=== PATIENT | female | born 1945 | race Caucasian/White ===

== ENCOUNTER → 2018-06-11 08:01 | Outpatient (CLI) | payer BC, MEDICARE, SELFPAY ==
--- NOTE | 2018-06-11 08:30 | MM_ITS ---
MM Dig screening mamm BI w/CAD CAD Screening COMPARISON: Digital mammograms with CAD 01/05/2017 and 08/31/2015 INDICATION: There is a history of breast cancer in the patient maternal grandmother. TECHNIQUE: Standard CC and MLO images were obtained. R2 CAD reviewed. FINDINGS: There is a markedly dense and heterogenic parenchymal pattern definitely lessening the sensitivity of mammography. There are benign-appearing calcination is in each breast and there is arterial calcification noted bilaterally. There is a biopsy clip left breast. There is no suspicious lesion and no suspicious microcalcifications. IMPRESSION: Dense parenchymal pattern with no suspicious lesion seen. BI-RADS Category: 2 Benign Finding(s) RECOMMENDED FOLLOW-UP: 1YR - 1 YEAR FOLLOW-UP (A letter has been sent to the patient regarding results of the study.)
== END ==
PROVIDERS: PCP Family Medicine; Visit Provider Family Medicine
DX: Z12.31 Encounter for screening mammogram for malignant neoplasm of breast (principal)
CPT/HCPCS: 77067

== ENCOUNTER → 2019-06-13 08:40 | Outpatient (CLI) | payer MEDICARE, SELFPAY ==
--- NOTE | 2019-06-13 08:55 | XR_ITS ---
PROCEDURE: XR DEXA AXIAL SKELETON CLINICAL HISTORY: OSTEOPOROSIS COMPARISON: ABDPELW/O CT ABD PELVIS W/O CONTRAST from 10/16/2015 FINDINGS: L1-L4 density is 1.348 grams/centimeters sq with a T-score of 1.4. Left femoral neck density is 0.595 grams/centimeters sq with a T-score of -3.2 Scanogram images show lumbar scoliosis convex left IMPRESSION: Osteoporosis with high fracture risk. Treatment advised. Suggest follow-up exam May 2020 Dictated by: Rachid Madera MD 06/13/2019 10:03 Electronically signed by Rachid Madera MD in [place] 06/13/2019 10:03
--- NOTE | 2019-06-13 08:55 | MM_ITS ---
PROCEDURE: MM DIG SCREENING MAMM BI W/CAD Patient Age:73Y CLINICAL INDICATION: SCREENING 73-year-old. No hormones but no new complaints. Previous cyst aspirations bilaterally. Family history. Maternal grandmother with breast cancer COMPARISON: DIGMAMMS MAMMOGRAM SCREEN-MEAT SPECIALIST N/C from 07/15/2009 [facility] DIGITAL MAMM-SCREEN BILATERAL from 10/04/2010 [facility] DIG MAMM-SCREEN ALAINA from 08/31/2015 [facility] DIG MAMM-SCREEN ALAINA W/CAD from 01/05/2017 BL US BREAST-LT COMPLETE W/AXILLA from 01/25/2017 BR US BREAST-RT COMPLETE W/AXILLA from 01/25/2017 DMDXUAVR DIG MAMM-DX UNI A/VW-RT W/CAD from 01/25/2017 DMDXUL DIG MAMM-DX UNI-LT W/CAD from 02/15/2017 MAMTL US MAMMOTOME-LT from 02/15/2017 [facility] MM Dig screening mamm BI w/CAD from 06/11/2018 TECHNIQUE: Standard CC and MLO images were obtained. R2 CAD reviewed. Axillary CC view bilaterally as were included FINDINGS: dense heterogeneous breast tissue bilaterally, with fibroglandular elements most evident at the upper outer quadrant bilaterally-and extending to the central breast/retroareolar region bilateral. Mammography is decreased sensitivity in these regions of denser heterogeneous tissue. However we see no unique nor definitive dominant mass of. A density areas on one view dissipate on another favoring fibroglandular elements suspicious calcifications. Right breast with right CC views appear unchanged no new findings except for the slight progressive calcification benign-appearing at a area at 6 o'clock position Left breast. Metallic clip from previous biopsy upper outer quadrant again noted. Areas of density on the MLO view seen today appear stable since 2016 and 2010. No significant new areas of concern . IMPRESSION: No significant change. Overall stable mammogram. No new unique or persistent definitive new areas of significant concern However Mammography of decreased sensitivity within areas of dense heterogeneous breast, as seen bilaterally. if any palpable areas present or developed ultrasound would be useful complement augment to mammography particularly in breast of this heterogeneous dense character. Bilateral follow-up mammogram 1 year recommended, should be emphasized and encouraged BI-RAD Category: 2 Benign Finding(s) FOLLOW-UP: 1YR 1 Year Follow-up (A letter has been sent to the patient regarding results of the study.) Dictated by: Josef Houser MD 06/15/2019 11:50 Electronically signed by Josef Houser MD in [place] 06/19/2019 09:52
== END ==
PROVIDERS: PCP Family Medicine; Visit Provider Family Medicine
DX: Z12.31 Encounter for screening mammogram for malignant neoplasm of breast (principal); M81.0 Age-related osteoporosis without current pathological fracture
CPT/HCPCS: 77067; 77080

== ENCOUNTER → 2020-06-15 10:07 | Outpatient (CLI) | payer MEDICARE, SELFPAY ==
--- NOTE | 2020-06-15 10:09 | MM_ITS ---
PROCEDURE: MM DIG SCREENING MAMM BI W/CAD Digital Breast Tomosynthesis Included CLINICAL INDICATION: SCREENING Breast cancer in the patient's maternal grandmother and the patient's daughter and niece both diagnosed before menopause. There has been a previous biopsy left breast and a previous cyst aspiration right breast. COMPARISON: MG DMDXUL DIG MAMM-DX UNI-LT W/CAD from 02/15/2017 MG [facility] MM Dig screening mamm BI w/CAD from 06/11/2018 MG MM DIG SCREENING MAMM BI W/CAD from 06/13/2019 TECHNIQUE: Standard CC and MLO images and 3D Tomosynthesis was obtained. R2 CAD reviewed. FINDINGS: Prominent and heterogenic fibroglandular densities are seen throughout both breasts. Christo images are most helpful in this type of dense breast parenchyma. Findings are bilateral and symmetrical. There is faint arterial calcification bilaterally. There is a biopsy clip upper outer quadrant left breast. There are benign-appearing calcifications in each breast. There is no suspicious lesion in either breast and no suspicious microcalcifications. IMPRESSION: Stable dense and heterogenic parenchymal pattern with no suspicious lesions seen BI-RAD Category: 2 Benign Finding(s) FOLLOW-UP: 1YR 1 Year Follow-up (A letter has been sent to the patient regarding results of the study.) Dictated by: Dr. Tee Hernandes MD 06/16/2020 09:37 Dr. Tee Hernandes MD in [place] 06/16/2020 09:37
== END ==
PROVIDERS: PCP Family Medicine; Visit Provider Family Medicine
DX: Z12.31 Encounter for screening mammogram for malignant neoplasm of breast (principal)
CPT/HCPCS: 77063; 77067

== ENCOUNTER → 2021-08-09 08:12 | Outpatient (CLI) | payer MEDICARE, SELFPAY ==
--- NOTE | 2021-08-09 08:18 | MM_ITS ---
PROCEDURE INFORMATION: Exam: MG Bilateral Screening 3D Mammography Exam date and time: 08/09/2021 8:18 AM Age: 75 years old Clinical indication: screening mammogram TECHNIQUE: Imaging protocol: Bilateral screening tomosynthesis and 2D mammography including computer-aided detection (CAD) when performed. COMPARISON: 1. MG MM DIG SCREENING MAMM BI W/CAD 06/15/2020 10:38 AM 2. MG MM DIG SCREENING MAMM BI W/CAD 06/13/2019 9:21 AM 3. MG [facility] MM Dig screening mamm BI w/CAD 06/11/2018 8:19 AM 4. MG DMDXUL DIG MAMM-DX UNI-LT W/CAD 02/15/2017 11:23 AM FINDINGS: MAMMOGRAPHY: Breast composition: The breast tissue is heterogeneously dense, which may obscure small masses. Mass: Stable benign-appearing subcentimeter nodules are present in the bilateral breasts. No new or morphologically suspicious nodule has developed to suggest malignancy. Architectural distortion: No new or suspicious architectural distortion. Calcifications: Stable benign-appearing calcifications are present. No new or suspicious cluster of microcalcifications have developed. Asymmetric density: No new or suspicious asymmetric density is present Skin thickening: None. Axillary adenopathy: None. IMPRESSION: No mammographic evidence of malignancy. Recommend annual screening mammography unless otherwise clinically indicated. ASSESSMENT: BI-RADS category 2: Benign
--- NOTE | 2021-08-09 08:19 | XR_ITS ---
PROCEDURE: XR DEXA AXIAL SKELETON CLINICAL HISTORY: OSTEOPOROSIS COMPARISON: CR BONE3 BONE DENSITOMETRY(HIP:LT SPINE from 01/05/2017 FINDINGS: The right hip BMD is 0.523 with a T-score of -2.9. The left hip BMD is 0.513 with a T-score of -3.0. The lumbar spine BMD is 1.138 with a T-score of 0.8. Previous the lowest density was in the right femoral neck with a T-score of -3.3 IMPRESSION: This patient is considered osteoporotic according to the World Health Organization criteria. Fracture risk is high. Treatment is advised. Based on these results a follow-up exam is recommended in 1 year. Dictated by: Rachid Madera MD 08/09/2021 14:06 Rachid Madera MD in [place] 08/09/2021 14:06
== END ==
PROVIDERS: PCP Family Medicine; Visit Provider Family Medicine
DX: Z12.31 Encounter for screening mammogram for malignant neoplasm of breast (principal); M81.0 Age-related osteoporosis without current pathological fracture
CPT/HCPCS: 77063; 77067; 77080

== ENCOUNTER → 2022-09-19 11:17 | Outpatient (CLI) | payer MEDICARE, SELFPAY ==
--- NOTE | 2022-09-19 11:21 | MM_ITS ---
PROCEDURE INFORMATION: Exam: MG Bilateral Screening 3D Mammography Exam date and time: 09/19/2022 11:17 AM Age: 76 years old Clinical indication: Screening examination TECHNIQUE: Imaging protocol: Bilateral Screening tomosynthesis and 2D mammography including computer-aided detection (CAD) when performed. COMPARISON: 1. MG MM DIG SCREENING MAMM BI W/CAD 08/09/2021 8:29 AM 2. MG MM DIG SCREENING MAMM BI W/CAD 06/15/2020 10:38 AM FINDINGS: MAMMOGRAPHY: Breast composition: Hetero Breast composition: The breasts are heterogeneously dense, which may obscure small masses. Mass: None. Architectural distortion: None. Calcifications: No suspicious calcifications. Asymmetric density: None. Skin thickening: None. Axillary adenopathy: None. IMPRESSION: No mammographic evidence of malignancy. Annual screening is recommended unless otherwise clinically indicated. ASSESSMENT: BI-RADS Category 1: Negative
== END ==
PROVIDERS: PCP Family Medicine; Visit Provider Family Medicine
DX: Z12.31 Encounter for screening mammogram for malignant neoplasm of breast (principal)
CPT/HCPCS: 77063; 77067

== ENCOUNTER 2023-04-13 08:00 | Outpatient (RCR) | payer MEDICARE, SELFPAY | END 2023-04-13 08:05 | disposition home or self-care (01) | LOC: OT 08:00 | PROVIDERS: PCP Family Medicine; Visit Provider Physician Assistant | DX: M25.512 Pain in left shoulder (principal); Z96.612 Presence of left artificial shoulder joint | CPT/HCPCS: 97010; 97014; 97016; 97110; 97140; 97164; 97165; 97530; G0283 ==

== ENCOUNTER 2023-12-01 08:11 | Outpatient (CLI) | payer MEDICARE, SELFPAY ==
--- NOTE | 2023-12-01 08:14 | MM_ITS ---
PROCEDURE INFORMATION: Exam: MG Bilateral Screening 3D Mammography Exam date and time: 12/01/2023 8:07 AM Age: 78 years old Clinical indication: Screening examination TECHNIQUE: Imaging protocol: Bilateral Screening tomosynthesis and 2D mammography including computer-aided detection (CAD) when performed. COMPARISON: 1. MG MM DIG SCREENING MAMM BI W/CAD 09/19/2022 11:17 AM 2. MG MM DIG SCREENING MAMM BI W/CAD 08/09/2021 8:29 AM FINDINGS: MAMMOGRAPHY: Breast composition: The breasts are heterogeneously dense, which may obscure small masses. Mass: None. Architectural distortion: None. Calcifications: No suspicious calcifications. Asymmetric density: None. Skin thickening: None. Axillary adenopathy: None. IMPRESSION: No mammographic evidence of malignancy. Annual screening is recommended unless otherwise clinically indicated. ASSESSMENT: BI-RADS Category 1: Negative
== END 2023-12-01 23:59 ==
LOC: RAD 08:12
PROVIDERS: PCP Family Medicine; Visit Provider Family Medicine
DX: Z12.31 Encounter for screening mammogram for malignant neoplasm of breast (principal)
CPT/HCPCS: 77063; 77067

== ENCOUNTER 2024-06-10 09:10 | Outpatient (CLI) | payer MEDICARE, SELFPAY ==
--- NOTE | 2024-06-10 09:14 | XR_ITS ---
FINAL REPORT CLINICAL HISTORY: SCREENING. COMPARISON: None FINDINGS: Using L1-4, the bone mineral density of the spine is 1.239 g/cm2, corresponding to T-score of 1.7 which is within normal limits but likely falsely elevated secondary to hypertrophic changes. Using the left hip, the bone mineral density of the femoral neck is 0.522 g/cm2, corresponding to a T-score of -2.9 which is consistent with osteoporosis. Using the right hip, the bone mineral density of the femoral neck is 0.580 g/cm2, corresponding to a T-score of -2.4 which is consistent with low bone density. FRAX not reported because some T-score at or below -2.5 and the patient is being treated for osteoporosis. NOTE: T-score: Standard deviation compared with peak bone mass of young adult mean. *Following the recommendations of the International Society of Bone densitometry, classification of hip BMD is based on the lower of two T-scores; total hip or femoral neck. IMPRESSION: Diminished bone mineral density consistent with osteoporosis. Reviewed, Interpreted and Dictated by Christopher Garrett III, MD Transcribed by Nisha Chery Authenticated and [facility]
== END 2024-06-10 23:59 | disposition home or self-care (01) ==
LOC: RAD 09:10
PROVIDERS: PCP Family Medicine; Visit Provider Family Medicine
DX: M81.0 Age-related osteoporosis without current pathological fracture (principal)
CPT/HCPCS: 77080

== ENCOUNTER 2025-03-03 16:06 | Outpatient (CLI) | payer MEDICARE, SELFPAY ==
--- OUTSIDE RECORDS SUMMARY | 2021-07-01 10:32 | XMS_ITS | Continuity of Care Document ---
Author Name [facility] Organization [facility] Care Team Providers Care Ug Designer Name Role Phone [facility] Unavailable Unavailable Immunizations Combined list of available immunizations from the Department of Defense and Veterans Affairs facilities. Immunization Series Date Given Administered By Site Reaction Lot Number CVX Code Drug Drapery Head Former Status Comments Source COVID-19 ([employer]), MRNA, LNP-S, PF, 30 MCG/0.3 ML DOSE 3 2020 208 complet ed PFR; [id number]; 2 [place] [facility]
--- OUTSIDE RECORDS SUMMARY | 2024-12-02 05:00 | XMS_ITS ---
Author Organization [facility] Address [address] [place] [address] [address] [facility] [address] [place] [id number] Care Team Providers Care Archeologist Classical Name Role Phone Marvin Basurto Primary Care Provider [phone] REASON FOR VISIT 6 Month Check Up Encounters Encounter Location Date Provider Diagnosis [facility] [address] [facility] [address] [facility] [address] [place] [phone] 12/02/2024 Marvin Basurto Plan Of Treatment Next Appt Details Provider Name:Marvin Rosario ry, 08/29/2025 09:30:00 AM, [address] [facility] [address] [facility], [address], [place], [id number], Progress Notes * JG BENDERLVB:1945 ([age] yo F)Acc No.[id number]:12/02/2024 Progress Notes Patient: KASEY MCCARTHY Provider: Cesar Basurto M.D. :1945 A ge:79 Y S ex:Female Date:12/02/2024 Address:[address] [place] [address] [id number] Subjective: * Chief Complaints: * 1 . 6 Month Check Up. * Medical History: Objective: * Vitals: Assessment: Plan: * Treatment: * Images: Billing Information: * Visit Code: * Procedure Codes: * Electronic signature of April Basurto MD on 03/03/2025 at 04:11 PM EDT Sign off status: Pending * Provider: Cesar Basurto M.D. Date: 0 12/02/2024 Generated for Jaye darling/Rashard/Flory on: 0 03/03/2025 04:11 PM EDT
--- OUTSIDE RECORDS SUMMARY | 2024-12-11 11:45 | XMS_ITS ---
[facility] Address [address] [place] [id number] Care Team Providers Care Splicing Technician Name Role Phone Marvin Basurto Primary Care Provider Allergies Allergen (clinical drug ingredient) Drug/Non Drug Allergy documented on EMR Reaction Allergy Type Onset Date Status sulindac Sulindac rash Drug Allergy Active Results Component Value Reference Range Notes CBC Fingerstick (in house) Reviewed date:12/11/2024 03:57:41 PM Interpretation: Performing Lab: Notes/Report: wbc 12.7 3.5 - 10 lym 12.6% 15 - 50 mid 4.0% 2 - 15 gran 83.4% 35 - 80 rbc 4.50 3.5 - 5.5 hgb 12.7 11.5 - 16.5 hct 38.2 35 - 55 mcv 84.9 75 - 100 mch 28.2 25 - 35 mchc 33.2 31 - 38 plat 316 100 - 400 REASON FOR VISIT congestion, cold Medications Medication SIG (Take, Route, Frequency, Duration) Notes Start Date End Date Status Calcium-Vitamin D-Minerals 600-800 MG-UNIT 1 tab(s) orally 2 times a day; Duration: 30 day(s) Active Vitamin D 50 MCG (1999) 1 tablet Oral ly Once a day Active Alendronate Sodium 70 MG TAKE 1 TABLET B Y MOUTH ONCE A WEEK, DIRECTED Active Irbesartan 300 MG TAKE 1 TABLET BY DAILY; Duration: 90 days Active Atorvastatin Calcium 40 MG 1 tab(s) oral ly once a day; Duration: 90 days Active Zithromax Z-Wilian 250 MG as directed Orall y once daily; Duration: 5 days 12/11/2024 Active Benzonatate 200 MG 1 capsule as needed Orally Three times a day 12/11/2024 Active Meclizine HCl 25 MG 1 tab(s) orally 3 ti mes a day prn 08/13/2013 Active Metamucil Smooth Texture 58.6 % as directed orally once a day; Duration: 7 day(s) Active Multiple Vitamin - 1 cap(s) orally once a day; Duration: 30 day(s) Active Tylenol Extra Strength 500 MG 1 tablet as needed Orally every 6 hrs Active ZyrTEC Allergy 10 MG 1 tab(s) orally onc e a day Active Vital Signs Weight 126 lbs 12/11/2024 Blood pressure systolic 130 mm Hg 12/12/19 25 Blood pressure diastolic 80 mm Hg 025 Heart Rate 92 /min 12/11/2024 Height 62 in 12/11/2024 BMI 23.04 kg/m2 12/11/2024 Encounters Encounter Location Date Provider Diagnosis [facility] [address] [facility] [address] [facility] [address] [place] [phone] 12/11/2024 Marvin Basurto Acute URI J06.9 Assessments Encounter Date Diagnosis (ICD Code) Assessment Notes Treatment Notes Treatment Clinical Notes Section Notes 12/11/2024 Acute URI (ICD-10 - J06.9) Plan Of Treatment Medication Medication Name Sig Start Date Stop Date Notes Zithromax Z-Wilian 250 MG as directed Orall y once daily; Duration: 5 days 12/11/2024 Benzonatate 200 MG 1 capsule as needed Orally Three times a day 12/11/2024 Next Appt Details Follow Up: prn, Reason: Provider Name:Marvin Rosario ry, 08/29/2025 09:30:00 AM, [address] [facility], [address], [place], [phone], Progress Notes * ART RUIZ:1945 ([age] yo F)Acc No.[id number]:12/11/2024 Progress Notes Patient: KASEY MCCARTHY Provider: Cesar Basurto M.D. :1945 A ge:79 Y S ex:Female Date:12/11/2024 Address:[address] [place], [place] [address] [address] [phone] Subjective: * Chief Complaints: * 1 . Congestion, cold. * HPI: E NT/respiratory: 79 year old female presents with c/o cough P t complains of greenish yellow sputum production cough for about a week. Associated with nasal congestion. * ROS: D ERMATOLOGY: no R arjun. n o H luis armando. G ASTROENTEROLOGY: no N ausea. n o V omiting. U ROLOGY: no D ifficulty urinating. n o B lood in urine. * Medical History: D exa with Hip Osteoporosis, 07/2009, LT Shoulder Arthritis, Hyperlipidemia, Colon Polyps, 2017. * Surgical History: P artial Hyst 1980, Bilateral Cataract Removal 2014, Colonoscopy 2006, 2017, Mole Removal - Begnin 03/2019. * Hospitalization/Major Diagno stic Procedure: K [facility]ley [facility] 10/2015, ER [facility] [place], [place] 09/17/2018. * Family History: F ather: alive. M other: alive. 1 son(s) , 1 daughter(s) . . * Social History: C URRENT TOBACCO USE S moking Status: Patient does NOT smoke. C affeine: yes, frequency:daily. Past smoking status: no, Smoking status: Does not smoke. * Medications: T aking Tylenol Extra Strength 500 MG Tablet 1 tablet as needed Orally every 6 hrs , Taking ZyrTEC Allergy 10 MG Tablet 1 tab(s) orally once a day , Taking Multiple Vitamin - Capsule 1 cap(s) orally once a day , Taking Meclizine HCl 25 MG Tablet 1 tab(s) orally 3 times a day , Notes to Pharmacist: prn, Taking Metamucil Smooth Texture 58.6 % Powder as directed orally once a day , Taking Calcium-Vitamin D-Minerals 600-800 MG-UNIT Tablet Chewable 1 tab(s) orally 2 times a day , Taking Vitamin D 50 MCG (2000 UT) Tablet 1 tablet Orally Once a day , Taking Alendronate Sodium 70 MG Tablet TAKE 1 TABLET BY MOUTH ONCE A WEEK, DIRECTED , Taking Irbesartan 300 MG Tablet TAKE 1 TABLET BY MOUTH DAILY , Taking Atorvastatin Calcium 40 MG Tablet 1 tab(s) orally once a day , Medication List reviewed and reconciled with the patient * Allergies: S ulindac: rash. Objective: * Vitals: W t: 126, Temp: 98.2, BP: 130/80, HR: 92, O2 Sat: 97% on RA, Nurse: raghu, Ht: 62, BMI:23.04. * Examination: E NT/Respiratory: General Appearance: N AD. O ral cavity : m inimal erythema without exudate on pharynx. H eart : R RR, normal S1 S2. L ungs: c lear to auscultation bilaterally. Assessment: * Assessment: 1. Cheo maldonado URI - J06.9 (Primary) Plan: * Treatment: Value Reference Range w bc 12.7 3.5 - 10 * l ym 12.6% 15 - 50 * m id 4.0% 2 - 15 * g ran 83.4% 35 - 80 * r bc 4.50 3.5 - 5.5 * h gb 12.7 11.5 - 16.5 * h ct 38.2 35 - 55 * m cv 84.9 75 - 100 * m ch 28.2 25 - 35 * m chc 33.2 31 - 38 * p lat 316 100 - 400 * Nikole Farrell 12/11/2024 03:57: 20 PM > Provider reviewed results while patient in office. * Procedure Codes: G 2211 Complex e/[place], [address] CAPILLARY BLOOD DRAW, 17269 CBC WITH AUTO DIFF * Follow Up: p rn * Images: Billing Information: * Visit Code: 56010 Office Visit, Est Pt., Level 3. * Procedure Codes: G2211 Complex e/[place]. [address] CAPILLARY BLOOD DRAW. 23580 CBC WITH AUTO DIFF. * Electronic signature of April Basurto MD on 03/03/2025 at 04:11 PM EDT Sign off status: Pending * Provider: Cesar Basurto M.D. Date: 12/11/2024 Generated for Jaye darling/Rashard/Zeniaitting on: 0 03/03/2025 04:11 PM EDT History and Physical Notes * HPI (History of Present Illness) Category Sub-Category Detail Notes Category Not es ENT/respiratory cough Pt complains of greenish yellow sputum production cough for about a week. Associated with nasal congestion Examination Category Sub-Category Detail Notes Category Not es ENT/Respiratory Oral cavity : minimal erythema without exudate on pharynx Heart : RRR, normal S1 S2 Lungs: clear to auscultatio n bilaterally General Appearance: NAD
--- OUTSIDE RECORDS SUMMARY | 2025-02-26 05:30 | XMS_ITS ---
Author Organization [facility] Address [address] [place] [id number] Care Team Providers Care Yard Specialist Name Role Phone Marvin Basurto Primary Care Provider Allergies Allergen (clinical drug ingredient) Drug/Non Drug Allergy documented on EMR Reaction Allergy Type Onset Date Status sulindac Sulindac rash Drug Allergy Active Results Component Value Reference Range Notes P-Comprehensive Metabolic Pa yuriy (CMP) (Not yet reviewed by provider) Interpretation:Normal Performing Lab: Notes/Report: Test performed by [facility] [address] [place] [address] , [address], [place] [address] Anatoly Zapata MD, Physical Therapy Aides Teacher CLIA: [id number] Sodium 144 135-145 mmol/L Potassium 4.7 3.5-5.3 mmol/L Chloride 105 97-108 mmol/L CO2 28 20-32 mmol/L Glucose 84 65-99 mg/dL BUN 11 8-23 mg/dL Creatinine 0.85 0.50-1.00 mg/dL Calcium 10.0 8.6-10.4 mg/dL eGFR by Creatinine 70 >59 mL/min/1.73m2 Protein 6.7 6.0-8.3 g/dL Albumin 4.2 3.5-5.3 g/dL Alkaline Phosphatase 105 35-121 IU/L ALT (SGPT) 16 <5-47 IU/L AST (SGOT) 22 <5-40 IU/L Bilirubin, Total 0.8 <0.2-1.2 mg/dL A/G Ratio 1.7 1.1-2.5 P-Lipid Panel (Not yet revie wed by provider) Interpretation:Normal Performing Lab: Notes/Report: Test performed by [facility], [address]ia Ferrer , [place] [address] Anatoly aZpata MD, Physical Therapy Aides Teacher CLIA: [id number] Cholesterol 187 <200 mg/dL Triglycerides 95 <150 mg/dL HDL Cholesterol 70 >39 mg/dL Cholesterol / HDL Ratio 2.67 0.00-4.44 Ratio Non-HDL Cholesterol 117 <130 mg/dL LDL Cholesterol (Calculation) 98 <130 mg/dL LDL Cholesterol Levels* Less than 100 mg/dL Optimal 100 to 129 mg/dL Near Optimal/ Above Optimal 130 to 159 mg/dL Borderline High 160 to 189 mg/dL High 190 mg/dL and above Very High * Categories as recommended by the 2004 ATPIII guidelines LDL/HDL Ratio 1.4 <3.3 Ratio LDL Cholesterol Patient History Test Date: 06/27/2022 LDL Results: 76 Units: mg/dL % Change: - Test Date: 09/19/2023 LDL Results: 64 Units: mg/dL % Change: -15% Test Date: 02/26/2025 LDL Results: 98 Units: mg/dL % Change: +53% P-TSH reflex to FT4 (Not yet reviewed by provider) Interpretation:Normal Performing Lab: Notes/Report: Test performed by [facility] [address] [place] [address] , [address], [place] [address] Anatoly Zapata MD, Physical Therapy Aides Teacher CLIA: [id number] TSH reflex to FT4 1.16 0.43-5.25 mU/L P-Microalbumin/Creatinine, R andom Urine Sample (Not yet reviewed by provider) Interpretation:Normal Performing Lab: Notes/Report: Test performed by [facility] [address] [place] [address] , [address], [place] [address] Anatoly Zapata MD, Physical Therapy Aides Teacher CLIA: [id number] Albumin/Creatinine Ratio, Urine 5 0-30 ug/m g Microalbumin, Urine, Random 0.5 Creatinine, Urine 93.1 P-Vitamin D 25-Hydroxy (Not yet reviewed by provider) Interpretation:Normal Performing Lab: Notes/Report: Test performed by [facility] [address] [place] [address] , [address], [place] [address] Anatoly Zapata MD, Physical Therapy Aides Teacher CLIA: [id number] Vitamin D 25-Hydroxy 50.4 30.0-100.0 ng/mL Interpretation of Vitamin D 25 OH: < 20 ng/mL - Deficiency 20 - 29 ng/mL - Insufficiency 30 - 100 ng/mL - Sufficiency > 100 ng/mL - Super-therapeutic- toxicity may occur above this level. Clinical correlation required. REASON FOR VISIT check up Medications Medication SIG (Take, Route, Frequency, Duration) Notes Start Date End Date Status Calcium-Vitamin D-Minerals 600-800 MG-UNIT 1 tab(s) orally 2 times a day; Duration: 30 day(s) Active Vitamin D 50 MCG (2000 UT) 1 tablet Oral ly Once a day Active Irbesartan 300 MG TAKE 1 TABLET BY ROXY TH DAILY; Duration: 90 days Active Atorvastatin Calcium 40 MG 1 tab(s) oral ly once a day; Duration: 90 days Active Metamucil Smooth Texture 58.6 % as directed orally once a day; Duration: 7 day(s) Active Tylenol Extra Strength 500 MG 1 tablet as needed Orally every 6 hrs Active ZyrTEC Allergy 10 MG 1 tab(s) orally onc e a day Active Multiple Vitamin - 1 cap(s) orally once a day; Duration: 30 day(s) Active Meclizine HCl 25 MG 1 tab(s) orally 3 ti mes a day prn 08/13/2013 Active Alendronate Sodium 70 MG take 1 tablet o rally once a week; Duration: 90 days Active Vital Signs Weight 127 lbs 02/26/2025 Blood pressure systolic 130 mm Hg 02/27/20 25 Blood pressure diastolic 80 mm Hg 025 Heart Rate 88 /min 02/26/2025 Height 62 in 02/26/2025 BMI 23.23 kg/m2 02/26/2025 Encounters Encounter Location Date [facility] [address] [place] [phone] 02/26/2025 Marvinmita WadeCircle Primary hypertension I10 ; Pure hypercholesterolemia E78.00 ; Vitamin D deficiency E55.9 ; Age-related osteoporosis without current pathological fracture M81.0 and Breast cancer screening by mammogram Z12.31 Assessments Encounter Date Diagnosis (ICD Code) Assessment Notes Treatment Notes Treatment Clinical Notes Section Notes 02/26/2025 Primary hypertension (ICD-10 - I10) 02/26/2025 Pure hypercholesterolemia (ICD-10 - E78.00) 02/26/2025 Vitamin D deficiency (ICD-10 - E55.9) 02/26/2025 Age-related osteopor osis without current pathological fracture (ICD-10 - M81.0) 02/26/2025 Breast cancer screen ing by mammogram (ICD-10 - Z12.31) Plan Of Treatment Pending Test Test Name Order Date Mammogram 02/26/2025 P-Comprehensive Metabolic Panel (CMP) P-Lipid Panel 02/26/2025 P-TSH reflex to FT4 02/26/2025 P-Microalbumin/Creatinine, Random Urine Sample 02/26/2025 P-Vitamin D 25-Hydroxy 02/26/2025 Next Appt Details Follow Up: 6 Months, Reason: Provider Name:Marvin Rosario ry, 08/29/2025 09:30:00 AM, [address] [facility] [address], [address], [place], [place], [id number], Progress Notes * FER RUIZB:1945 ([age] yo F)Acc No.[id number]:02/26/2025 Progress Notes Patient: KASEY MCCARTHY Provider: Cesar Basurto M.D. :1945 A ge:79 Y S ex:Female Date:02/26/2025 Address:[address] [place], [place] [id number] Subjective: * Chief Complaints: * 1 . Check up. * HPI: C ardiology: 79 year old female presents with c/o Blood Pressure Elevated?Pt here to f/u on hypertension. Pt states she is doing well and does not have any concerns. c/o Hyperlipidemia P t is fasting today. * ROS: D ERMATOLOGY: no R arjun. n o H luis armando. G ASTROENTEROLOGY: no N ausea. n o V omiting. U ROLOGY: no D ifficulty urinating. n o B lood in urine. * Medical History: D exa with Hip Osteoporosis, 07/2009, LT Shoulder Arthritis, Hyperlipidemia, Colon Polyps, 2018. * Surgical History: P artial Hysterectomy 1980, Bilateral Cataract Removal 2014, Colonoscopy 2006, 2018, Mole Removal - Begnin 03/2019. * Hospitalization/Major Diagno stic Procedure: Ayo Vasquez- [facility] ER 10/2015, ER [facility] [place], [place] 09/17/2018. * Family History: F ather: [...] tablet Orally Once a day , Taking Irbesartan 300 MG Tablet TAKE 1 TABLET BY MOUTH DAILY , Taking Atorvastatin Calcium 40 MG Tablet 1 tab(s) orally once a day , Taking Alendronate Sodium 70 MG Tablet take 1 tablet orally once a week , Discontinued Zithromax Z-Wilian 250 MG Tablet as directed Orally once daily , Discontinued Benzonatate 200 MG Capsule 1 capsule as needed Orally Three times a day , Medication List reviewed and reconciled with the patient * Allergies: S ulindac: rash. Objective: * Vitals: W t: 127, Temp: 97.9, BP: 130/80, HR: 88, Nurse: raghu, Ht: 62, BMI:23.23. * Examination: C ardiology: General Appearance: p leasant, NAD. H eart sounds: R RR, normal S1, S2. L ungs: c lear, no rales or wheezes. E xtremities: n o leg edema. Assessment: * Assessment: 1. P rimary hypertension - I10 (Primary) 2 . P ure hypercholesterolemia - E78.00 3 . V itamin D deficiency - E55.9 4 . A ge-related osteoporosis without current pathological fracture - M81.0 5 . B reast cancer screening by mammogram - Z08.13 Plan: * Treatment: Value Reference Range A /G Ratio 1.7 1.1-2.5 - * A lbumin 4.2 3.5-5.3 - g/dL * A lkaline Phosphatase 105 35-121 - IU/L * A LT (SGPT) 16 <5-47 - IU/L * A ST (SGOT) 22 <5-40 - IU/L * B ilirubin, Total 0.8 <0.2-1.2 - mg/dL * B UN 11 8-23 - mg/dL * C alcium 10.0 8.6-10.4 - mg/dL * C hloride 105 97-108 - mmol/L * C O2 28 20-32 - mmol/L * C reatinine 0.85 0.50-1.00 - mg/dL * G lucose 84 65-99 - mg/dL * P otassium 4.7 3.5-5.3 - mmol/L * S odium 144 135-145 - mmol/L * P rotein 6.7 6.0-8.3 - g/dL * e GFR by Creatinine 70 >59 - mL/min/1.73m2 * Nikole Farrell 02/28/2025 11:35: 24 AM EDT > LM for pt to return call ?LAB: P-Microalbumin/Creatinine, Random Urine Sample (Collection Date & Time - 02/26/2025 08:48 AM)?Normal* Value Reference Range A lbumin/Creatinine Ratio, Urine 5 0-30 - ug /mg * C reatinine, Urine 93.1 - mg/dL * M icroalbumin, Urine, Random 0.5 - mg/dL * Nikole Farrell 02/28/2025 11:35: 24 AM EDT > LM for pt to return call 2.?Pure hypercholesterolemia?LAB: P-Comprehensive Metabolic Panel (CMP) (Collection Date & Time - 02/26/2025 08:48 AM)?Normal* Value Reference Range A /G Ratio 1.7 1.1-2.5 - * A lbumin 4.2 3.5-5.3 - g/dL * A lkaline Phosphatase 105 35-121 - IU/L * A LT (SGPT) 16 <5-47 - IU/L * A ST (SGOT) 22 <5-40 - IU/L * B ilirubin, Total 0.8 <0.2-1.2 - mg/dL * B UN 11 8-23 - mg/dL * C alcium 10.0 8.6-10.4 - mg/dL * C hloride 105 97-108 - mmol/L * C O2 28 20-32 - mmol/L * C reatinine 0.85 0.50-1.00 - mg/dL * G lucose 84 65-99 - mg/dL * P otassium 4.7 3.5-5.3 - mmol/L * S odium 144 135-145 - mmol/L * P rotein 6.7 6.0-8.3 - g/dL * e GFR by Creatinine 70 >59 - mL/min/1.73m2 * Nikole Farrell 02/28/2025 11:35: 24 AM EDT > LM for pt to return call ?LAB: P-Lipid Panel (Collection Date & Time - 02/26/2025 08:48 AM)?Normal* Value Reference Range C holesterol / HDL Ratio 2.67 0.00-4.44 - Ratio * C holesterol 187 <200 - mg/dL * H DL Cholesterol 70 >39 - mg/dL * L DL Cholesterol (Calculation) 98 <130 - mg/d L * L DL/HDL Ratio 1.4 <3.3 - Ratio * N on-HDL Cholesterol 117 <130 - mg/dL * T riglycerides 95 <150 - mg/dL * Nikole Farrell 02/28/2025 11:35: 24 AM EDT > LM for pt to return call ?LAB: P-TSH reflex to FT4 (Collection Date & Time - 02/26/2025 08:48 AM)? Normal* Value Reference Range T SH reflex to FT4 1.16 0.43-5.25 - mU/L * Nikole Farrell 02/28/2025 11:35: 24 AM EDT > LM for pt to return call 3.?Vitamin D deficiency?LAB: P-Vitamin D 25-Hydroxy (Collection Date & Time - 02/26/2025 08:48 AM)? Normal* Value Reference Range V itamin D 25-Hydroxy 50.4 30.0-100.0 - ng/mL * Nikole Farrell 02/28/2025 11:35: 24 AM EDT > LM for pt to return call 4.?Breast cancer screening by mammogram?Imaging: Mammogram* Cora Martinez 02/26/2025 10:0 6:51 AM EDT > faxed to [facility] Scheduling * Procedure Codes: G 2211 Complex e/m visit add on * Follow Up: 6 Months * Images: Billing Information: * Visit Code: 81811 Office Visit, Est Pt., Level 4. * Procedure Codes: G2211 Complex e/m visit add on. * Electronic signature of April Basurto MD on 03/03/2025 at 04:11 PM EDT Sign off status: Pending * Provider: Cesar Basurto M.D. Date: 0 02/26/2025 Generated for Jaye darling/Rashard/Zeniaitting on: 0 03/03/2025 04:11 PM EDT History and Physical Notes * HPI (History of Present Illness) Category Sub-Category Detail Notes Category Not es Cardiology Blood Pressure Elevated Pt here to f/u on hypertension. Pt states she is doing well and does not have any concerns Hyperlipidemia Pt is fasting today Examination Category Sub-Category Detail Notes Category Not es Cardiology Lungs: clear, no rales or wheezes Heart sounds: RRR, normal S1, S2 Extremities: no leg edema General Appearance: pleasant, NAD
--- NOTE | 2025-03-03 16:09 | MM_ITS ---
PROCEDURE INFORMATION: Exam: MG Bilateral Screening 3D Mammography Exam date and time: 03/03/2025 4:19 PM Age: 79 years old Clinical indication: Screening mammogram TECHNIQUE: Imaging protocol: Bilateral Screening tomosynthesis and 2D mammography including computer-aided detection (CAD) when performed. COMPARISON: 1. MG MM DIG SCREENING MAMM BI W/CAD 12/01/2023 8:07 AM 2. MG MM DIG SCREENING MAMM BI W/CAD 09/19/2022 11:17 AM 3. MG MM DIG SCREENING MAMM BI W/CAD 08/09/2021 8:29 AM 4. MG MM DIG SCREENING MAMM BI W/CAD 06/15/2020 10:38 AM FINDINGS: MAMMOGRAPHY: Breast composition: The breast is heterogeneously dense, which may obscure small masses. Mass: None. Architectural distortion: No new or suspicious architectural distortion. Calcifications: No new or suspicious calcifications are present Asymmetric density: No new or suspicious asymmetric density is present Skin thickening: None. Axillary adenopathy: None. IMPRESSION: No mammographic evidence of malignancy. Recommend annual screening mammography unless otherwise clinically indicated. ASSESSMENT: BI-RADS category 1: Negative.
--- OUTSIDE RECORDS SUMMARY | 2025-03-03 16:11 | XMS_ITS | Patient Health Record ---
Author Organization [facility] Address [address] [place] [phone] Care Team Providers Care Turn Down Man Name Role Phone Marvin Basurto Primary Care Provider Allergies Allergen (clinical drug ingredient) Drug/Non Drug Allergy documented on EMR Reaction Allergy Type Onset Date Status sulindac Sulindac rash Drug Allergy Active Results Component Value Reference Range Notes P-Comprehensive Metabolic Pa yuriy (CMP) Reviewed date:06/04/2024 11:20:25 AM Interpretation:Na 148, bili 1.3 Performing Lab: Notes/Report: Test performed by [facility] [address] [place] [address] , [address], [place] [address] Anatoly Zapata MD, Logistics Clerk CLIA: [id number] Sodium 148 135-145 mmol/L Potassium 4.6 3.5-5.3 mmol/L Chloride 108 97-108 mmol/L CO2 26 22-32 mmol/L Glucose 86 65-99 mg/dL BUN 12 8-23 mg/dL Creatinine 0.79 0.50-1.00 mg/dL Calcium 10.0 8.6-10.4 mg/dL eGFR by Creatinine 77 >59 mL/min/1.73m2 Protein 6.5 6.0-8.3 g/dL Albumin 4.3 3.5-5.3 g/dL Alkaline Phosphatase 78 35-121 IU/L ALT (SGPT) 21 <5-47 IU/L AST (SGOT) 27 <5-40 IU/L Bilirubin, Total 1.3 <0.2-1.2 mg/dL A/G Ratio 2.0 1.1-2.5 P-Vitamin D 25-Hydroxy Reviewed date:06/04/2024 11:20:25 AM Interpretation:48.1 Performing Lab: Notes/Report: Test performed by [facility] [address] [place] [address] , [address], [place] [address] Anatoly Zapata MD, Logistics Clerk CLIA: [id number] Vitamin D 25-Hydroxy 48.1 30.0-100.0 ng/mL Interpretation of Vitamin D 25 OH: < 20 ng/mL - Deficiency 20 - 29 ng/mL - Insufficiency 30 - 100 ng/mL - Sufficiency > 100 ng/mL - Super-therapeutic- toxicity may occur above this level. Clinical correlation required. DEXA Hip and Spine Reviewed date:06/27/2024 01:12:07 PM Interpretation:Stable bone density Performing Lab: Notes/Report: Stable bone density CBC Fingerstick (in house) Reviewed date:12/11/2024 03:57:41 [...] - 38 plat 316 100 - 400 P-Comprehensive Metabolic Pa yuriy (CMP) (Not yet reviewed by provider) Interpretation:Normal Performing Lab: Notes/Report: Test performed by [facility] [address] [place] [address] , [address], [place] [address] Anatoly Zapata MD, Logistics Clerk CLIA: [id number] Sodium 144 135-145 mmol/L Potassium 4.7 3.5-5.3 [...] Interpretation:Normal Performing Lab: Notes/Report: Test performed by [facility] [address] , [address], [place] [address] Anatoly Zapata MD, Logistics Clerk CLIA: [id number] Cholesterol 187 <200 mg/dL Triglycerides 95 <150 [...] Interpretation:Normal Performing Lab: Notes/Report: Test performed by [facility] [address] [place] [address] , [place] [address] Anatoly Zapata MD, Logistics Clerk CLIA: [id number] TSH reflex to FT4 1.16 0.43-5.25 mU/L P-Microalbumin/Creatinine, R andom Urine Sample (Not yet reviewed by provider) Interpretation:Normal Performing Lab: Notes/Report: Test performed by [facility] [address] [place] [address] , [address], [place] [address] Anatoly Zapata MD, Logistics Clerk CLIA: [id number] Albumin/Creatinine Ratio, Urine 5 0-30 ug/m g Microalbumin, Urine, Random 0.5 Creatinine, Urine 93.1 P-Vitamin D 25-Hydroxy (Not yet reviewed by provider) Interpretation:Normal Performing Lab: Notes/Report: Test performed by [facility] [address] [place] [address] , [address], [place] [address] Anatoly Zapata MD, Logistics Clerk CLIA: [id number] Vitamin D 25-Hydroxy 50.4 30.0-100.0 ng/mL Interpretation of Vitamin D 25 OH: < 20 ng/mL - Deficiency 20 - 29 ng/mL - Insufficiency 30 - 100 ng/mL - Sufficiency > 100 ng/mL - Super-therapeutic- toxicity may occur above this level. Clinical correlation required. Reason For Referral No Information Medications Medication SIG (Take, Route, Frequency, Duration) Notes Start Date End Date Status Metamucil Smooth Texture 58.6 % as directed orally once a day; Duration: 7 day(s) Active Calcium-Vitamin D-Minerals 600-800 MG-UNIT 1 tab(s) orally 2 times a day; Duration: 30 day(s) Active Vitamin D 50 MCG (2000 UT) 1 tablet Oral ly Once a day Active Irbesartan 300 MG TAKE 1 TABLET BY ROXY TH DAILY; Duration: 90 days Active Atorvastatin Calcium 40 MG 1 tab(s) oral ly once a day; Duration: 90 days Active Tylenol Extra Strength 500 MG 1 tablet as needed Orally every 6 hrs Active Alendronate Sodium 70 MG take 1 tablet o rally once a week; Duration: 90 days Active ZyrTEC Allergy 10 MG 1 tab(s) orally onc e a day Active Multiple Vitamin - 1 cap(s) orally once a day; Duration: 30 day(s) Active Meclizine HCl 25 MG 1 tab(s) orally 3 ti mes a day prn 08/13/2013 Active Immunizations Vaccine Route Administration Date Status Comme nts COVID 19 Pfizer Unknown 11/11/2020 Administered Fluzone High Dose (65yr and older) IM Intramuscular 05/07/2019 Administered Fluzone High Dose (65yr and older) IM Intramuscular 05/28/2020 Administered Fluzone High Dose (65yr and older) IM Intramuscular 07/26/2021 Administered Fluzone High Dose (65yr and older) IM Intramuscular 06/27/2022 Administered Fluzone High Dose (65yr and older) IM Intramuscular 09/19/2023 Administered Fluzone High Dose (65yr and older) IM Intramuscular 06/03/2024 Administered PNEUMOVAX 23 VACCINE IM Intramuscular 05/28/2020 Administe red Prevnar (PCV13) IM Intramuscular 05/07/2019 Administered Prevnar (PCV20) IM Intramuscular 06/27/2022 Administered Problems Problem Type SNOMED Code ICD Code Onset Dates Problem Status W/U Status Risk Notes Problem Vitamin D deficiency (19096060) Vitamin D deficiency (E55.9) Active confirmed Problem Hyperbilirubinemia (67839258) Hyperbilirubinemia (E80.6) Active confirmed Problem Age-related osteoporosis (703245879) Age-related osteoporosis without current pathological fracture (M81.0) Active confirmed Problem Gross hematuria (839064202) Gross hematuria (R31.0) Active confirmed Problem Localized, primary osteoarthritis of the shoulder region (562341869) Primary osteoarthritis of left shoulder (M19.012) Active confirmed Problem Pure hypercholesterolemia (556557559) Pure hypercholesterolemia (E78.00) Active confirmed Problem Primary hypertension (47435561) Primary hypertension (I10) Active confirmed Vital Signs Heart Rate 88 /min 02/26/2025 Blood pressure diastolic 80 mm Hg 02/26/2025 Height 62 in 02/26/2025 Blood pressure systolic 130 mm Hg 02/26/2025 Weight 127 lbs 02/26/2025 BMI 23.23 kg/m2 02/26/2025 Encounters Encounter Location Date Provider Diagnosis [facility] [address] [place], [place] [phone] 06/03/2024 Marvin Walls Primary hypertension I10 ; Vitamin D deficiency E55.9 ; Hyperbilirubinemia E80.6 ; Age-related osteoporosis without current pathological fracture M81.0 ; Colon cancer screening Z12.11 and Encounter for immunization Z23 [facility] [address] [place], [place] [phone] 12/11/2024 Marvin Walls Acute URI J06.9 [facility] [address] [place], [place] [id number] 02/26/2025 Marvin Walls Primary hypertension I10 ; Pure hypercholesterolemia E78.00 ; Vitamin D deficiency E55.9 ; Age-related osteoporosis without current pathological fracture M81.0 and Breast cancer screening by mammogram Z12.31 [facility] [address] [place], [place] [phone] 03/03/2025 Marvin Walls [facility] [address] [place], [place] [id number] 05/13/2024 Marvin Walls [facility] [address] [place], [place] [phone] 06/04/2024 Marvin Basurto Assessments Encounter Date Diagnosis (ICD Code) Assessment Notes Treatment Notes Treatment Clinical Notes Section Notes 12/11/2024 Acute URI (ICD-10 - J06.9) 02/26/2025 Primary hypertension (ICD-10 - I10) 06/03/2024 Vitamin D deficiency (ICD-10 - E55.9) 02/26/2025 Pure hypercholesterolemia (ICD-10 - E78.00) 06/03/2024 Primary hypertension (ICD-10 - I10) 06/03/2024 Hyperbilirubinemia (ICD-10 - E80.6) 02/26/2025 Vitamin D deficiency (ICD-10 - E55.9) 02/26/2025 Age-related osteopor osis without current pathological fracture (ICD-10 - M81.0) 06/03/2024 Age-related osteopor osis without current pathological fracture (ICD-10 - M81.0) 06/03/2024 Colon cancer screeni ng (ICD-10 - Z12.11) 02/26/2025 Breast cancer screen ing by mammogram (ICD-10 - Z12.31) 06/03/2024 Encounter for immunization (ICD-10 - Z23) Plan Of Treatment Pending Test Test Name Order Date colonoscopy 06/03/2024 Mammogram 02/26/2025 P-Comprehensive Metabolic Panel (CMP) P-Lipid Panel 02/26/2025 P-TSH reflex to FT4 02/26/2025 P-Microalbumin/Creatinine, Random Urine Sample 02/26/2025 P-Vitamin D 25-Hydroxy 02/26/2025 Next Appt Details Provider Name:Marvin Rosario ry, 08/29/2025 09:30:00 AM, [address], [address], [place], [place], [id number], Insurance Providers Payer Name Payer Address Payer Phone Subscriber Number Group Number Insured Name Patient Relationship to Insured Coverage Start Date Coverage End Date [employer] [address] [address] [place], [place] [phone] [id number] CHRISTOPHER BENDER Spouse - patient is the spouse of the insured Medications Administered Medication Instructions Date of Administration Dosage Notes Dexamethasone 12/21/2005 1 mL Morphine 04/08/2013 4 mg phenergan 25 mg/ml 04/08/2013 25 mg Medical (General) History Medical History History ICD Code Dexa with Hip Osteoporosis, 07/2009 LT Shoulder Arthritis Hyperlipidemia Colon Polyps, 2018 Surgical History Surgery Date(Month/Year) Partial Hysterectomy 1981 Bilateral Cataract Removal 2014 Colonoscopy 2006, 2017 Mole Removal - Begnin 03/2019 Hospitalization History Reason Date(Month/Year) ER [place], [place] 09/17/2018 [facility]- [facility] ER 10/2015
--- OUTSIDE RECORDS SUMMARY | 2025-03-03 16:11 | XMS_ITS | Clinical Summary ---
Author Organization Healthcare Address [address] [place] [address] Care Team Providers Care Tetryl Blender Operator Name Role Phone Marvin Basurto MD Primary Care Provider [phone] Allergies No known active allergies Medications alendronate (Fosamax) 70 MG tablet Take 1 tablet (70 mg) by mouth every 7 (seven) days. Takes on Monday 2 Active atorvastatin (Lipitor) 40 MG tablet Take 1 tablet (40 mg) by mouth 1 (one) time each day. 2 Active meclizine (Antivert) 25 MG tablet if needed. 7 Active Polyethyl Glycol-Propyl Glycol (Systane) 0.4-0.3 % solution Administer 1 drop into both eyes 1 (one) time each day. 7 Active Calcium Citrate-Vitamin D (CALCIUM + D PO) Take by mouth 1 (one) time each day. 6 Active irbesartan (Avapro) 300 MG tablet Take 1 tablet (300 mg) by mouth 1 (one) time each day. 3 Active Multiple Vitamins-Minera ls (MULTIVITAMIN WOMEN 50+ PO) Take 1 tablet by mouth 1 (one) time each day. Active Psyllium (METAMUCIL PO) Take 2 teaspoon by mouth 1 (one) time each day. Active cholecalciferol (Vitamin D3) 50 MCG (2000 UT) tablet Take 1 tablet (2,000 Units) by mouth 1 (one) time each day. 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 Left shoulder pain 03/02/2017 Vitreous floaters of both eyes 03/09/2016 Encounters Date Type Department Care Team Description 12/06/2024 1:45 PM EDT Office Visit [facility] [address] [place] [phone] Contreras Simms MD Dry eyes (Primary Dx); Myopia of both eyes; Regular astigmatism of both eyes; Bilateral presbyopia; Pseudophakia, both eyes 12/06/2024 Travel from Last 3 Months Family History Medical History Relation Name Comments Cataracts Mother Relation Name Status Comments Mother Social History Tobacco Use Types Packs/Day Years Used Date Smoking Tobacco: Never Passive Smoke Exposure: Never Smokeless Tobacco: Never Tobacco Cessation:Counseling Given: Not Answered Alcohol Use Standard Drinks/Week Comments Never 0 (1 standard drink = 0.6 oz pur e alcohol) PHQ-2 Answer Date Recorded Patient Health Questionnaire-2 Score 0 06/06/2023 PHQ-2A Answer Date Recorded Patient Health Questionnaire-2 Score 0 06/06/2023 Comments No Sex and Gender Information Value Date Recorded Sex Assigned at Not on file Legal Sex Female 7:42 PM EDT Gender Identity Not on file Sexual Orientation Not on file Last Filed Vital Signs Vital Sign Reading Time Taken Comments Blood Pressure 152/80 09/05/2023 1:34 PM EST Pulse 85 09/05/2023 1:34 PM EST Temperature 36.8 C (98.2 F) 09/05/2023 1:34 PM EST Respiratory Rate 13 02/09/2023 4:00 PM EDT Oxygen Saturation 98% 09/05/2023 1:34 PM EST Inhaled Oxygen Concentration - - Weight 59.9 kg (132 lb) 09/05/2023 1:34 PM EST Height 157.5 cm (5' 2 ) 09/05/2023 1:34 PM EST Body Mass Index 24.14 09/05/2023 1:34 PM EST Plan of Treatment Upcoming Encounters Date Type Department Care Team (Late st Contact Info) Description 01/02/2026 1:30 PM EDT Office Visit [facility] [address] [place] [address] Contreras Simms MD [address] [place] [address] Health Maintenance Due Date Last Done Comments [facility]-Bone Density Scan 1945 [facility]-Hepatitis C Screening 1945 [facility]-Medicare Annual Wellness (AWV) 1945 [facility]-Infant/Child/Adol SDOH Screenings 1945 [facility]- SDOH Screenings 1964 [facility]-Adult SDOH Screenings 1964 [facility]-DTaP,Tdap,and Td Vaccines (1 - Tdap) 1965 [facility]-Zoster Vaccines (1 of 2) 1965 [facility]-RSV Vaccine: 60+ Years or (1 - 1-dose 75+ series) 2021 [id number] Vaccine ( season) 2024 07/01/2021, 11/11/2020, 10/16/2020 [facility]-Depression Screening 06/06/2024 06/06/2023 [facility]-Influenza Vaccine (#1) 04/14/202507/26, 05/28/2020, 05/07/2019, Additional history exists [facility]-Pneumococcal Vaccine: 50+ Years Completed 05/28/2020, 05/07/2019 HPV Vaccines Aged Out No longer eligi ble based on patient's age to complete this topic [facility]-HIB Vaccines Aged Out No longer e ligible based on patient's age to complete this topic [facility]-Hepatitis A Vaccines Aged Out No longer eligible based on patient's age to complete this topic [facility]-IPV Vaccines Aged Out No longer e ligible based on patient's age to complete this topic [facility]-Rotavirus Vaccines Aged Out No lo nger eligible based on patient's age to complete this topic Medical Devices Implanted Type Area Online Affiliate Marketing Manager Device Identifier Shelf Expiration Date Model / Serial / Lot Baseplate Glenoid W/P2 Coating Rsp Ti 30mm - [id number] Implanted:Qty: 1 on 02/09/2023 by Musa Flores MD at [facility] Left: Shoulder [employer]-[id number] 12/05/2028 508-32-204 / / [id number] Head Glenoid W/Retaining Screw Rsp Ti 32mm/Std - [id number] Implanted:Qty: 1 on 02/09/2023 by Musa Flores MD at [facility] Left: Shoulder [employer]-[id number] 01/11/2029 508-32-101 / / [id number] Screw Bone Locking Rsp Ti 5mm X 26mm - [id number] Implanted:Qty: 1 on 02/09/2023 by Musa Flores MD at [facility] Left: Shoulder [employer]-[id number] 12/15/2028 506-03-126 / / [id number] Screw Bone Locking Rsp Ti 5mm X 14mm - [id number] Implanted:Qty: 1 on 02/09/2023 by Musa Flores MD at [facility] Left: Shoulder [employer]-[id number] 11/22/2028 506-03-114 / / [id number] Screw Bone Locking Rsp Ti 5mm X 34mm - [id number] Implanted:Qty: 1 on 02/09/2023 by Musa Flores MD at [facility] Left: Shoulder [employer]-[id number] 11/08/2028 506-03-134 / / [id number] Screw Bone Locking Rsp Ti 5mm X 14mm - [id number] Implanted:Qty: 1 on 02/09/2023 by Musa Flores MD at [facility] Left: Shoulder [employer]-[id number] 10/07/2028 506-03-114 / / [id number] Stem Humeral Altivate Ti Sm Shell Sz8/108mm - [id number] Implanted:Qty: 1 on 02/09/2023 by Musa Flores MD at [facility] Left: Shoulder [employer]-[id number] 12/29/2028 533-08-108 / / [id number] Poly Small Socket Eplus 32mm Neutral Std - [id number] Implanted:Qty: 1 on 02/09/2023 by Musa Flores MD at [facility] Left: Shoulder [employer]-[id number] 01/11/2028 509-02-032 / / [id number] Insurance [facility] MEDICARE Care Teams Tetryl Blender Operator Relationship Specialty Start Date End Date Marvin Basurto MD [address] [place] [employer] [id number] PCP - General 12/25/20
== END 2025-03-03 23:59 | disposition home or self-care (01) ==
LOC: RAD 16:07
PROVIDERS: PCP Family Medicine; Visit Provider Family Medicine
DX: Z12.31 Encounter for screening mammogram for malignant neoplasm of breast (principal); R92.333 Mammographic heterogeneous density, bilateral breasts
CPT/HCPCS: 77063; 77067